=== PATIENT | female | born 1960 | race Caucasian/White ===

== ENCOUNTER 2023-11-20 13:41 | Emergency (ER) | payer BC ==
--- NOTE | 2023-11-20 14:29 | ED Physician Documentation ---
History of Present Illness - Stated complaint Stated Complaint: MEMORY LOSS,DISORIENTED - Chief complaint Chief Complaint: Neuro - Additonal information Additional information: 63-year-old female with absolutely no past medical history presents emergency department for loss of memory. Patient does not take any medications she is never been diagnosed with anything no hypertension no diabetes or any other chronic diseases. Patient is here with her spouse who reports that over the last few days patient has been feeling more tired and rundown she is worried that maybe she was starting to get COVID. Patient's states that they [place] d intercourse today that was more active than normal and exerted a lot of energy. After intercourse the patient started saying things that did not make sense. They have family coming into town this weekend and Leila has been doing a lot to prepare for this and when her asked something about her daughter coming into town or in did not know what he was talking about. He started to realize that she was not making any sense and asked her who the president was and she could not remember the president was she knew that 2023 and other simple things such as why she is wearing a walking boot for an ankle injury. Patient's drove her to the hospital and patient said that she started to have more memory and recollection of what happened she says that when she reflects back on that she feels like she was in a dream state. No chest pain no shortness of breath no nausea vomiting no fevers or chills. She is neurologically completely intact during that episode she had no slurred speech no weakness on one side of her body and no other neurological deficits. PD PAST MEDICAL HISTORY - Past Medical History Past Medical History: No Cardiovascular: None Respiratory: None Neuro: None Endocrine/Autoimmune: None GI: None NATIONAL ACCOUNT DIRECTOR: None : None HEENT: None Psych: None Musculoskeletal: None Derm: None - Past Surgical History Past Surgical History: No - Allergies Allergies/Adverse Reactions: Allergies Allergy/AdvReac Type Severity Reaction Status Date / Time No Known Drug Allergies Allergy Verified 11/20/23 13:55 - Social History Does the pt smoke?: No Smoking Status: Never smoker Does the pt drink ETOH?: No Does the pt have substance abuse?: No - Immunizations Immunizations are current?: Yes - POLST Patient has POLST: No PD ED PE NORMAL - Vitals Vital signs reviewed: Yes - General General: Alert and oriented X 3, No acute distress, Well developed/nourished - HEENT HEENT: Atraumatic, PERRL, EOMI - Neck Neck: Supple, no meningeal sign - Cardiac Cardiac: RRR - Respiratory Respiratory: No respiratory distress - Abdomen Abdomen: Normal bowel sounds - Back Back: No CVA TTP - Extremities Extremities: No edema, No calf tenderness / cord - Neuro Neuro: Alert and oriented X 3, project officer 2-12 intact, No motor deficit, No sensory deficit, Normal speech Eye Opening: Spontaneous Motor: Obeys Commands Verbal: Oriented GCS Score: 15 - Psych Psych: Normal mood PD ED PE EXPANDED - Neuro Neuro: Alert and Oriented X 3, Normal motor, Normal Sensation, Normal Speech, Normal reflexes, CNII-XII intact, PERRL, Normal gait, Normal finger nose, Normal speech. No: Lethargic, Obtunded, Weakness Results - Vitals Vitals: Vital Signs - 24 hr 11/20/23 11/20/23 11/20/23 13:55 14:59 15:29 Temperature 36.5 C Heart Rate 88 77 71 Respiratory 16 19 20 Rate Blood Pressure 170/77 H 142/73 H 153/86 H O2 Saturation 100 100 99 11/20/23 16:17 Temperature 36.7 C Heart Rate 62 Respiratory 12 Rate Blood Pressure 141/77 H O2 Saturation 98 Oxygen O2 Source Room air - EKG (time done) 1402 EKG releavant findings:: EKG personally interpreted by author of this note. Relevant findings are: Rate: Rate (enter#) (87) Rhythm: NSR [place]: Normal Intervals: Normal VA QRS: Normal Ischemia: Normal ST segments Computer interpretation: Agree with computer - Labs Labs: Laboratory Tests 11/20/23 11/20/23 11/20/23 14:45 14:45 14:45 WBC 7.5 RBC 4.31 Hgb 12.7 Hct 38.8 MCV 90.0 MCH 29.5 MCHC 32.7 RDW 12.7 Plt Count 237 MPV 10.8 Neut # (Auto) 4.5 Lymph # (Auto) 2.0 [place] # (Auto) 0.7 Eos # (Auto) 0.2 Baso # (Auto) 0.1 Absolute Nucleated RBC 0.00 Nucleated RBC % 0.0 Sodium 137 Potassium 3.5 Chloride 102 Carbon Dioxide 26 Anion Gap 9.0 BUN 18 Creatinine 0.8 Estimated GFR (MDRD) 72 L Glucose 126 H Calcium 9.9 Magnesium 1.7 Total Bilirubin 0.4 AST 18 ALT 18 Alkaline Phosphatase 64 Total Protein 7.4 Albumin 4.4 Globulin 3.0 Albumin/Globulin Ratio 1.5 Lipase 14 Urine Color Urine Clarity Urine pH Ur Specific [place] Urine Protein Urine Glucose (UA) Urine Ketones Urine Occult Blood Urine Nitrite Urine Bilirubin Urine Urobilinogen Ur Leukocyte Esterase Urine RBC Urine WBC Ur Squamous Epith Cells Urine Bacteria Ur Microscopic Review Urine Culture Comments Nasal Adenovirus (PCR) NOT DETECTED Nasal B. parapertussis DNA (PCR) NOT DETECTED Nasal Coronavir 229E PCR NOT DETECTED Nasal Coronavir HKU1 PCR NOT DETECTED Nasal Coronavir NL63 PCR NOT DETECTED Nasal Coronavir OC43 PCR NOT DETECTED Nasal Enterovir/Rhinovir PCR NOT DETECTED Nasal Influenza B PCR NOT DETECTED Nasal Influenza A PCR NOT DETECTED Nasal Parainfluen 1 PCR NOT DETECTED Nasal Parainfluen 2 PCR NOT DETECTED Nasal Parainfluen 3 PCR NOT DETECTED Nasal Parainfluen 4 PCR NOT DETECTED Nasal RSV (PCR) NOT DETECTED Nasal B.pertussis DNA PCR NOT DETECTED Nasal C.pneumoniae (PCR) NOT DETECTED Emiliano Human Metapneumo PCR NOT DETECTED Nasal M.pneumoniae (PCR) NOT DETECTED Nasal SARS-CoV-2 (PCR) NOT DETECTED 11/20/23 15:41 WBC RBC Hgb Hct MCV MCH MCHC RDW Plt Count MPV Neut # (Auto) Lymph # (Auto) [place] # (Auto) Eos # (Auto) Baso # (Auto) Absolute Nucleated RBC Nucleated RBC % Sodium Potassium Chloride Carbon Dioxide Anion Gap BUN Creatinine Estimated GFR (MDRD) Glucose Calcium Magnesium Total Bilirubin AST ALT Alkaline Phosphatase Total Protein Albumin Globulin Albumin/Globulin Ratio Lipase Urine Color YELLOW Urine Clarity CLEAR Urine pH 6.0 Ur Specific [place] <=1.005 Urine Protein NEGATIVE Urine Glucose (UA) NEGATIVE Urine Ketones NEGATIVE Urine Occult Blood SMALL H Urine Nitrite NEGATIVE Urine Bilirubin NEGATIVE Urine Urobilinogen 0.2 (NORMAL) Ur Leukocyte Esterase NEGATIVE Urine RBC 0-5 Urine WBC 4-5 Ur Squamous Epith Cells FEW Squamous Urine Bacteria Rare Ur Microscopic Review INDICATED Urine Culture Comments NOT INDICATED Nasal Adenovirus (PCR) Nasal B. parapertussis DNA (PCR) Nasal Coronavir 229E PCR Nasal Coronavir HKU1 PCR Nasal Coronavir NL63 PCR Nasal Coronavir OC43 PCR Nasal Enterovir/Rhinovir PCR Nasal Influenza B PCR Nasal Influenza A PCR Nasal Parainfluen 1 PCR Nasal Parainfluen 2 PCR Nasal Parainfluen 3 PCR Nasal Parainfluen 4 PCR Nasal RSV (PCR) Nasal B.pertussis DNA PCR Nasal C.pneumoniae (PCR) Emiliano Human Metapneumo PCR Nasal M.pneumoniae (PCR) Nasal SARS-CoV-2 (PCR) - Rads (name of study) Head CT without con Relevant Findings:: Final report received, EMP independent interpretation of test, Other (No intracranial hemorrhages or abnormalities) PD Medical Decision Making - ED course ED course: 63-year-old female presents emergency department for episode of amnesia. Since patient has been in the emergency department her memory is slowly coming back. NIH score 0 she is completely neurologically intact able to eat without any difficulty no dizziness no expressive aphasia and patient's reports during episode of confusion for the patient she did not have any expressive aphasia no unilateral weakness or focal neurological deficits making less worried about possible CVA versus TIA. We went ahead and did a head CT without con for further evaluation to rule out possible other intracranial hemorrhages masses or other acute findings which is found to be benign. Labs were also complete for further evaluation and revealed no acute abnormalities or findings. Patient went to be tested for COVID and no respiratory viruses were detected. Urinalysis also unremarkable make me less worried about possible urinary tract infection. Patient is likely experienced an episode of transient global amnesia especially given the fact that she experienced this amnesia after intercourse and patient's reports that it was more active than normal. She is given strict return precautions she is safe for discharge at this time all questions have been answered they are told to follow-up with primary care provider Departure - Departure Disposition: 01 Home, Self Care Clinical Impression: Transient global amnesia Instructions: ED Cephalgia Unspecified Comments: Thank you for trusting us with your care. I believe that you experienced an episode of something called transient global amnesia. There is nothing further that needs to get down we have completed a head CT as well as labs for further evaluation we are not seeing any acute abnormalities or findings. Follow-up with your primary care provider let her know about today's ER visit and feel free to come back to the ER if this were to ever happen again or if you have any new or concerning neurological symptoms. Forms: PCP List Discharge Date/Time: 11/20/23 16:17
[2023-11-20 15:01] LABS: BASOPHILS # (AUTO) 0.1 10^3/uL (0.0-0.1); BASOPHILS % (AUTO) 0.9 %; EOSINOPHILS # (AUTO) 0.2 10^3/uL (0.0-0.7); EOSINOPHILS % (AUTO) 3.1 %; HCT - HEMATOCRIT 38.8 % (37.0-47.0); HGB - HEMOGLOBIN 12.7 g/dL (12.0-16.0); LYMPHOCYTES % (AUTO) 26.9 %; MEAN CORPUSCULAR HEMOGLOBIN 29.5 pg (27.0-31.0); MEAN CORPUSCULAR HGB CONC 32.7 g/dL (32.0-36.0); MEAN PLATELET VOLUME 10.8 fL (7.9-10.8); MONOCYTES # (AUTO) 0.7 10^3/uL (0.0-1.0); MONOCYTES % (AUTO) 8.9 %; NEUTROPHILS # (AUTO) 4.5 10^3/uL (1.5-6.6); NEUTROPHILS % (AUTO) 60.1 %; PLT - PLATELET COUNT 237 10^3/uL (130-450); RED BLOOD COUNT 4.31 10^6/uL (4.20-5.40); RED CELL DISTRIBUTION WIDTH 12.7 % (12.0-15.0); WHITE BLOOD COUNT 7.5 x10^3/uL (4.8-10.8)
[2023-11-20 15:19] LABS: ALBUMIN 4.4 g/dL (3.2-5.5); ALBUMIN/GLOBULIN RATIO 1.5 (1.0-2.2); BILIRUBIN,TOTAL 0.4 mg/dL (0.2-1.0); CALCIUM 9.9 mg/dL (8.5-10.3); CREATININE 0.8 mg/dL (0.6-1.3); MAGNESIUM 1.7 mg/dL (1.7-2.3); POTASSIUM 3.5 mmol/L (3.5-4.5); TOTAL PROTEIN 7.4 g/dL (6.4-8.9)
--- NOTE | 2023-11-20 15:42 | CT Report ---
PROCEDURE: Head WO INDICATIONS: amnesia TECHNIQUE: Noncontrast 4.5 mm thick angled axial sections acquired from the foramen magnum to the vertex. For r adiation dose reduction, the following was used: automated exposure control, adjustment of mA and/or kV according to patient size. COMPARISON: None. FINDINGS: Image quality: Excellent. CSF spaces: Basal cisterns are patent. No extra-axial fluid collections. Ventricles are normal in size and shape. Brain: No midline shift. No intracranial masses or hemorrhage. [place]-white matter interface is norm al. Skull and face: Calvarium and visualized facial bones are intact, without suspicious lesions. Sinuses: Visualized sinuses and mastoids are clear. IMPRESSION: No acute intracranial pathology. Reviewed by: Darrel Lee MD on 11/20/2023 3:41 PM PDT Approved by: Darrel Lee MD on 11/20/2023 3:41 PM PDT Station ID: [id number]
[2023-11-20 15:50] LABS: BILIRUBIN,URINE NEGATIVE (NEGATIVE); GLUCOSE, URINE (UA) NEGATIVE (NEGATIVE); KETONES,URINE (UA) NEGATIVE (NEGATIVE); LEUKOCYTE ESTERASE, URINE NEGATIVE (NEGATIVE); NITRITE,URINE NEGATIVE (NEGATIVE); OCCULT BLOOD,URINE SMALL (NEGATIVE); PROTEIN,URINE NEGATIVE (NEGATIVE); UROBILINOGEN,URINE 0.2 (NORMAL) E.U./dL (NORMAL)
[2023-11-20 15:53] LABS: CLARITY,URINE CLEAR (CLEAR)
[2023-11-20 16:06] LABS: RBC,URINE 0-5 /HPF (0-5); SQUAMOUS EPITHELIAL CELL,UR FEW Squamous (<= Few)
[2023-11-20 16:09] LABS: BACTERIA,URINE Rare /HPF (None Seen)
[2023-11-20 16:15] LABS: CORONAVIRUS 229E-RESP PCR NOT DETECTED; CORONAVIRUS HKU1-RESP PCR NOT DETECTED; CORONAVIRUS NL63-RESP PCR NOT DETECTED; CORONAVIRUS OC43-RESP PCR NOT DETECTED; HUMAN METAPNEUMOVIRUS NOT DETECTED; INFLUENZA A- RESP PCR PANEL NOT DETECTED; RHINOVIRUS/ENTEROVIRUS NOT DETECTED; SARS-CoV-2 -RESP PCR PANEL NOT DETECTED
[2023-11-20 16:16] LABS: B. PARAPERTUSSIS- RESP PCR PAN NOT DETECTED; B. PERTUSSIS- RESP PCR PANEL NOT DETECTED; C. PNEUMONIAE- RESP PCR PANEL NOT DETECTED; INFLUENZA B - RESP PCR PANEL NOT DETECTED; M. PNEUMONIAE- RESP PCR PANEL NOT DETECTED; PARAINFLUENZA VIRUS 1 NOT DETECTED; PARAINFLUENZA VIRUS 2 NOT DETECTED; PARAINFLUENZA VIRUS 3 NOT DETECTED; PARAINFLUENZA VIRUS 4 NOT DETECTED; RSV- RESP PCR PANEL NOT DETECTED
[2023-11-20 16:25] VITALS: BP 141/77; O2SAT 98
== END 2023-11-20 16:17 | disposition home or self-care (01) ==
LOC: ED 13:41
DX: G45.4 Transient global amnesia (principal)
CPT/HCPCS: 36415; 80053; 81001; 81003; 83690; 83735; 85025; 87086; 87633; 93005; 99283; 99284